=== PATIENT | male | born 1985 | race Caucasian/White ===

== ENCOUNTER 2022-10-06 10:25 | Outpatient (REF) | payer OTHER, SELFPAY ==
[2022-10-06 14:07] LABS: Hematocrit 46.7 % (42.0-52.0); Hemoglobin 16.3 g/dl (14.0-18.0); Mean Corpuscular HGB Conc 34.9 g/dl (31.0-36.0); Mean Corpuscular Hemoglobin 31.8 pg (27.0-33.0); Mean Platelet Volume 11.5 fL (9.4-12.4); Platelet Count 229 X10*3/uL (160-400); Red Blood Count 5.13 X10*6/uL (4.60-5.80); Red Cell Distribution Width 11.9 % (11.0-16.0); White Blood Count 5.9 X10*3/uL (4.8-10.8)
[2022-10-06 14:36] LABS: Alanine Aminotransferase 43 U/L (0-40); Albumin Level 4.5 g/dL (3.5-5.0); Alkaline Phosphatase 79 U/L (39-117); Anion Gap 12 (12-20); Aspartate Amino Transferase 35 U/L (5-37); Bilirubin Total 2.1 mg/dL (0.0-1.0); Blood Urea Nitrogen 11 mg/dL (9-16); Calcium 9.1 mg/dL (8.4-10.2); Carbon Dioxide 26 mmol/L (22-29); Chloride 108 mmol/L (96-108); Cholesterol 156 mg/dL; Estimated Glomerular Filt Rate > 60; Glucose Fasting 90 mg/dL (60-99); HDL Cholesterol 40 mg/dL; LDL Cholesterol Calculated 106 mg/dl; Potassium 4.1 mmol/L (3.3-5.1); Sodium 142 mmol/L (135-145); Total Protein 6.8 g/dL (6.5-8.0); Triglycerides 50 mg/dL
[2022-10-06 14:53] LABS: TSH reflex Free T4 0.59 uIU/mL (0.32-4.0)
== END 2022-10-06 10:26 | disposition home or self-care (01) ==
LOC: HO.WFDLDS 10:25
PROVIDERS: Visit Provider Nurse Practitioner Family
DX: Z00.00 Encounter for general adult medical examination without abnormal findings (principal); G12.20 Motor neuron disease, unspecified
CPT/HCPCS: 36415; 80053; 80061; 84443; 85027

== ENCOUNTER 2023-01-04 10:04 | Outpatient (AMB) | payer OTHER, SELFPAY ==
--- NOTE | 2023-01-04 10:06 | MHC.PC.OV ---
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 He is on Riluzole 50 mg twice daily. He has been on the medication since August 2022. No acute symptoms. He was followed by neurology at the [facility], [facility] He was referred to [facility] for during her last visit; he states he had an appointment with them a month ago and was referred to neurology and speech therapy at [facility]; he intends to schedule appointments to establish. He reports history of chronic elevated bilirubin. He also reports history of weak hands grasp due to weakness and stiffness of both thumbs. [facility] Medical History MND (motor neurone disease) Port-wine stain of skin Sinusitis Surgical History No pertinent past surgical history Family History Mother High cholesterol Father Hypertension Paternal Grandmother Cancer Maternal Grandfather Cardiovascular disease Social History Housing: House Alcohol intake: current Alcohol intake frequency: a few times a week Alcohol type: hard liquor Patient Tobacco Use Status: Never used Tobacco e-Cigarette/Vaping Use: Never Used Substance Use Type: Marijuana service: No Current occupational status: employed Current occupation: [employer] Cognitive needs: No Hearing needs: No Vision needs: No Questionnaire Thrive Questionnaire Date Thrive assessed: 10/06/22 I am a: Patient What is your living situation today?: I have a steady place to live Within the past 12 months, did the food you bought not last and you didn't have the money to get more?: Never true Within the past 12 months, did you worry whether your food would run out before you got money to buy more?: Never true SANJU-7 AMB Questionnaire SANJU-7 Date SANJU - 7 assessed: 10/06/22 Source: Developed by Drs. Joseluis Rodriguez, Frida Yun, Suleiman Guevara and colleagues, with an educational nitin from [employer]. Review of Systems Const Details: Const Denies chills, Denies fatigue, Denies fever(s), Denies headache(s) and Denies weakness ENT Denies dizziness and Denies headache(s) Card Denies chest pain, Denies lightheadedness, Denies dyspnea and Denies other (Palpitations) Resp Denies cough, Denies dyspnea, Denies wheezing and Denies other ( shortness of breath) GI Denies abdominal pain, Denies melena, Denies hematochezia, Denies change in bowel habits, Denies dyspepsia and Denies nausea Denies hematuria and Denies dysuria Musc Denies abnormal gait, Denies myalgias, Denies arthralgias, Denies numbness and Denies tingling Skin/Breast Denies rash, Denies unusual bruising and Denies wounds Neuro Denies abnormal gait, Denies dizziness, Denies headache(s), Denies memory loss, Denies numbness, Denies Sensory deficit (Neuro), Denies tingling and Denies weakness Psych Denies anxiety and Denies depression Endo Denies fatigue Aller/Immun Denies wheezing Physical exam (Primary Care) Vital Signs: Last Vital Signs Pulse 70 01/04/23 10:08 BP 112/62 01/04/23 10:08 Pulse Ox 98 01/04/23 10:08 BMI result Body Mass Index 28.3 Tobacco/Smoking Status: Tobacco use Status Tobacco use date assessed 10/06/22 01/04/23 10:07 Patient Tobacco Use Status Never used Tobacco 01/04/23 10:07 e-Cigarette/Vaping Use Never Used 01/04/23 10:07 Thrive Assessment: Date of Thrive Assessment Date Thrive assessed 10/06/22 01/04/23 10:07 Const Other: General: no acute distress and well developed Nutritional Appearance: well nourished Orientation/consciousness: patient oriented x3 HENNJ Head: Yes normocephalic and Yes atraumatic Eyes General: appearance normal, both eyes and all related structures Pupils: Equal, round and reactive pupils present EOM: EOMs intact bilaterally Resp Effort & Inspection: normal respiratory effort Auscultation: clear to auscultation bilaterally Cardio Rate: regular rate Rhythm: regular rhythm Heart sounds: S1 normal heart sound present, S2 normal heart sound present, no gallops, no murmurs and no rubs GI Palpation (GI): No Abdominal aortic bruit present, Soft to palpation, nontender, No hepatosplenomegaly present and No Rebound tenderness present Auscultation: normal bowel sounds General: Yes no CVA tenderness Back/Spine/Pelvis Back: no CVA tenderness Cervical Spine: cervical ROM normal and No Cervical spine tenderness Thoracic/Lumbar Spine: thoraco-lumbar ROM normal, No pain with thoraco-lumbar ROM, No thoracic spinal tenderness and No lumbar spinal tenderness Extrem General: Yes normal to inspection, No edema and No calf tenderness Skin General: warm and dry. Normal skin color. Normal skin turgor Lesions: no lesions Rashes: no rashes Trauma: no lacerations or abrasions Wounds: no wounds Nails: normal Neuro General: patient oriented x3, gait normal and CN's II-XI intact bilaterally Cranial nerves: Yes Equal, round and reactive pupils present Cognition (Neuro): normal cognition Gait exam (Neuro): Normal gait present Motor exam (neuro): 5/5 motor strength present throughout Weak hand grasp bilaterally Sensory Exam: No Sensory deficit (Neuro) Deep tendon reflexes (DTR's): Right patellar reflex intensity grade: 2+ and Left patellar reflex intensity grade: 2+ Psych Affect: normal affect Assessment and Plan Assessment & Plan (1) MND (motor neurone disease): Code(s): G12.20 - Motor neuron disease, unspecified Plan: No acute symptoms Follow-up with Neurology and speech therapy as planned Continue to take Riluzole as prescribed Advised to get liver panel blood work done today. Will review results and make changes to his care plan if warranted Encouraged to get liver panel blood work done few days before his next visit Recent lab results reviewed with the patient Follow-up in 3 months or return sooner with symptoms or concerns Verbalized understanding and agreed with treatment plan. Orders: Orders Liver Panel Today G12.20 - Motor neuron disease, unspecified Liver Panel 3 Months Z00.00 - Encounter for general adult medical examination without abnormal findings Coding Level of Care Code Est Pt Level 3 (02116) Diagnoses MND (motor neurone disease) G12.20 Time Spent (min) 25
[2023-01-04 10:08] VITALS: BP 112/62; PULSE 70; O2SAT 98; BMI 28.3
== END 2023-01-04 11:04 | disposition home or self-care (01) ==
PROVIDERS: PCP Nurse Practitioner Family; Visit Provider Nurse Practitioner Family
DX: G12.20 Motor neuron disease, unspecified (principal)
CPT/HCPCS: 99213

== ENCOUNTER 2023-01-04 11:11 | Outpatient (REF) | payer OTHER, SELFPAY ==
[2023-01-04 14:51] LABS: Alanine Aminotransferase 70 U/L (0-40); Albumin Level 4.3 g/dL (3.5-5.0); Alkaline Phosphatase 72 U/L (39-117); Aspartate Amino Transferase 58 U/L (5-37); Bilirubin Direct 0.5 mg/dL (0.0-0.5); Bilirubin Total 1.7 mg/dL (0.0-1.0); Total Protein 6.8 g/dL (6.5-8.0)
== END 2023-01-04 11:12 | disposition home or self-care (01) ==
LOC: HO.WFDLDS 11:11
PROVIDERS: Visit Provider Nurse Practitioner Family
DX: G12.20 Motor neuron disease, unspecified (principal)
CPT/HCPCS: 36415; 80076

== ENCOUNTER 2023-04-06 09:49 | Outpatient (AMB) | payer OTHER, SELFPAY ==
--- NOTE | 2023-04-06 09:55 | A.OFFPC_ITS ---
Vital Signs 04/06/23 09:56 Height 5 ft 10 in Weight 193 lb 8 oz BMI 27.8 BP 110/74 Blood Pressure Location Lt brachial Position Sitting Respiration 13 Pulse 76 Pulse Source Pulse Oximeter Temp 97.7 F Temp Source Temporal Artery Scan Pulse Oximetry (%) 98 Oxygen Delivery Method Room Air Intake Visit Reasons: 3 mos MND Intake Note: Patient states that he needs the last labs repeated to check on his liver functions due to medications he is taking. Patient plans on seizing work due to disability on April 27. 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 Accompanied by: Allergies No Known Allergies Allergy (Verified 04/06/23 10:38) Medication List - Last Reconciled 04/06/23 by Catherine Bauman, CATRINA edaravone (Radicava ORS) 105 mg PO QAM riluzole 50 mg PO Q12H 30 days sod phenylbutyrat-taurursodiol 3-1 gram (Relyvrio) 1 packet PO DAILY Tobacco use date assessed: 10/06/22 Dental Screening Dental Screen Date: 04/06/23 Did you have a dental visit in the last 12 months?: No Did you have a dental problem in the last 6 months where you did not have access to dental care?: No Was dental information given to patient?: Yes HPI HPI Comments History of Present Illness Details 37-year-old male, accompanied by his wif yuki, presents for MND follow up.He is on Riluzole 50 mg twice daily. He has been on the medication since August 2022. No acute symptoms. He is currently followed by neurology at the [facility], [facility] He states he was last seen 2 weeks ago. He states that he is still mostly independent. However, his right calf was found to be weaker due to right foot drop and was recommended a brace which he has not ordered. He was advised to follow-up every 3 months. He never followed with with neurology and speech therapy He notes that he has significantly cut down on his drinking. He notes that he drinks a glass of two of vodka weekly. He has history of chronically elevated bilirubin and liver enzymes. He notes that he had a negative liver ultrasound over a year ago. He had blood work done in December. His billirubin, AST, and ALT were elevated, 1.7, 58, and 70 respectively. [facility] Medical History Weakness of right lower extremity MND (motor neurone disease) Port-wine stain of skin Sinusitis Surgical History No pertinent past surgical history Family History Mother High cholesterol Father Hypertension Paternal Grandmother Cancer Maternal Grandfather Cardiovascular disease Social History Housing: House Alcohol intake: current Alcohol intake frequency: a few times a week Alcohol type: hard liquor Patient Tobacco Use Status: Never used Tobacco e-Cigarette/Vaping Use: Never Used Substance Use Type: Marijuana service: No Current occupational status: employed Current occupation: [employer] Cognitive needs: No Hearing needs: No Vision needs: No Questionnaire Thrive Questionnaire Date Thrive assessed: 10/06/22 SANJU-7 AMB Questionnaire SANJU-7 Date SANJU - 7 assessed: 10/06/22 Source: Developed by Drs. Joseluis Rodriguez, Frida Yun, Suleiman Guevara and colleagues, with an educational nitin from [employer]. Review of Systems Const Details: Const Denies chills, Denies fatigue, Denies fever(s), Denies headache(s) and Denies weakness ENT Denies dizziness and Denies headache(s) Card Denies chest pain, Denies lightheadedness, Denies dyspnea and Denies other (Palpitations) Resp Denies cough, Denies dyspnea, Denies wheezing and Denies other ( shortness of breath) GI Denies abdominal pain, Denies melena, Denies hematochezia, Denies change in bowel habits, Denies dyspepsia and Denies nausea Denies hematuria and Denies dysuria Musc Denies abnormal gait, Denies myalgias, Denies arthralgias, Denies numbness and Denies tingling Skin/Breast Denies rash, Denies unusual bruising and Denies wounds Neuro Denies abnormal gait, Denies dizziness, Denies headache(s), Denies memory loss, Denies numbness, Denies Sensory deficit (Neuro), Denies tingling and Denies weakness Psych Denies anxiety, Denies depression, Denies memory loss Endo Denies cold intolerance, Denies fatigue, Denies heat intolerance, Denies polydipsia and Denies polyuria Aller/Immun Denies wheezing Physical exam (Primary Care) Vital Signs: Last Vital Signs Temp 97.7 F 04/06/23 09:56 Pulse 76 04/06/23 09:56 Resp 13 04/06/23 09:56 BP 110/74 04/06/23 09:56 Pulse Ox 98 04/06/23 09:56 Oxygen Delivery Method Room Air 04/06/23 09:56 BMI result Body Mass Index 27.8 Tobacco/Smoking Status: Tobacco use Status Tobacco use date assessed 10/06/22 04/06/23 10:07 Patient Tobacco Use Status Never used Tobacco 04/06/23 10:07 e-Cigarette/Vaping Use Never Used 04/06/23 10:07 Thrive Assessment: Date of Thrive Assessment Date Thrive assessed 10/06/22 04/06/23 10:07 Const Other: General: no acute distress and well developed Nutritional Appearance: well nourished Orientation/consciousness: patient oriented x3 HENMT Head: Yes normocephalic and Yes atraumatic Eyes General: appearance normal, both eyes and all related structures Pupils: Equal, round and reactive pupils present EOM: EOMs intact bilaterally Resp Effort & Inspection: normal respiratory effort Auscultation: clear to auscultation bilaterally Cardio Rate: regular rate Rhythm: regular rhythm Heart sounds: S1 normal heart sound present, S2 normal heart sound present, no gallops, no murmurs and no rubs GI Palpation (GI): No Abdominal aortic bruit present, Soft to palpation, nontender, No hepatosplenomegaly present and No Rebound tenderness present Auscultation: normal bowel sounds General: Yes no CVA tenderness Back/Spine/Pelvis Back: no CVA tenderness Cervical Spine: cervical ROM normal and No Cervical spine tenderness Thoracic/Lumbar Spine: thoraco-lumbar ROM normal, No pain with thoraco-lumbar ROM, No thoracic spinal tenderness and No lumbar spinal tenderness Extrem General: Yes normal to inspection, No edema and No calf tenderness Skin General: warm and dry. Normal skin color. Normal skin turgor Neuro General: patient oriented x3, gait normal and no focal neuro deficit Cranial nerves: Yes Equal, round and reactive pupils present Cognition (Neuro): normal cognition Gait exam (Neuro): Normal gait present Motor exam (neuro): 5/5 motor strength BUE, 4/5 motor strength to BLE Sensory Exam: No Sensory deficit (Neuro) Psych Appearance: grossly normal Affect: normal affect Attitude: cooperative Thought process: Normal thought process present Assessment and Plan Assessment & Plan (1) MND (motor neurone disease): Code(s): G12.20 - Motor neuron disease, unspecified Plan: Normal physical and neuro exam Continue with current treatment regimen per neurology Continue follow-up with Neurology as planned Advised to schedule his next physical exam for next year Return sooner with symptoms or concerns Verbalized understanding and agreed with treatment plan. (2) Transaminitis: Code(s): R74.01 - Elevation of levels of liver transaminase levels Plan: History of chronically elevated AST and ALT Recent AST, and ALT were elevated 58 and 70 respectively Will repeat AST and ALT level. Advised to get fasting blood work done. Will review results and make changes to his care plan as needed. Would order liver ultrasound if elevated He has cut down his drinking to 1-2 glasses of vodka weekly Verbalized understanding and agreed with treatment plan. (3) Elevated bilirubin: Code(s): R17 - Unspecified jaundice Plan: History chronically elevated bilirubin level Recent bilirubin level is elevated elevated, 1.7 Will check bilirubin level. Will review results and make changes to his care plan if warranted. Verbalized understanding and agreed with treatment plan. Orders: Orders Bilirubin Total Today R17 - Unspecified jaundice Coding Level of Care Code Est Pt Level 3 (07660) Diagnoses MND (motor neurone disease) G12.20 Transaminitis R74.01 Elevated bilirubin R17
[2023-04-06 09:56] VITALS: BP 110/74; PULSE 76; RESP 13; TEMP 36.5; O2SAT 98; BMI 27.8
== END 2023-04-06 10:51 | disposition home or self-care (01) ==
PROVIDERS: PCP Nurse Practitioner Family; Visit Provider Nurse Practitioner Family
DX: G12.20 Motor neuron disease, unspecified (principal); R74.01 Elevation of levels of liver transaminase levels; R17 Unspecified jaundice
CPT/HCPCS: 99213

== ENCOUNTER 2023-04-06 10:54 | Outpatient (REF) | payer OTHER, SELFPAY ==
[2023-04-06 14:57] LABS: Bilirubin Total 1.3 mg/dL (0.0-1.0)
[2023-04-06 15:01] LABS: Alanine Aminotransferase 62 U/L (0-40); Albumin Level 4.4 g/dL (3.5-5.0); Alkaline Phosphatase 85 U/L (39-117); Aspartate Amino Transferase 46 U/L (5-37); Bilirubin Direct 0.4 mg/dL (0.0-0.5); Bilirubin Total 1.3 mg/dL (0.0-1.0); Total Protein 7.1 g/dL (6.5-8.0)
== END 2023-04-06 10:55 | disposition home or self-care (01) ==
LOC: HO.WFDLDS 10:54
PROVIDERS: Visit Provider Nurse Practitioner Family
DX: Z00.00 Encounter for general adult medical examination without abnormal findings (principal); R17 Unspecified jaundice
CPT/HCPCS: 36415; 80076; 82247

== ENCOUNTER 2023-04-15 08:26 | Outpatient (REF) | payer OTHER, SELFPAY ==
--- NOTE | ~2023-04-15 | US_ITS ---
EXAMINATION: US ABDOMEN LIMITED CLINICAL INFORMATION: Elevation of liver transaminase levels. COMPARISON: None available. TECHNIQUE: Real-time imaging of the right upper quadrant abdominal viscera. FINDINGS: PANCREAS: Normal. LIVER: The liver is normal in size. The liver contour is normal. Slightly increased hepatic echogenicity suggesting hepatic steatosis. No focal hepatic lesion. There is no intrahepatic biliary duct dilatation seen. GALLBLADDER: Normal. The gallbladder is physiologically distended without evidence of stones, sludge, polyps, wall thickening or pericholecystic fluid. COMMON BILE DUCT: Normal in caliber measuring 0.23 cm in diameter. RIGHT KIDNEY: Normal. No hydronephrosis. No renal calculi or focal parenchymal lesions. The kidney measures 11.5 cm in maximum dimension. FREE FLUID: None. US/US abdomen limited IMPRESSION: Slightly increased hepatic echogenicity suggesting hepatic steatosis.
== END 2023-04-15 08:27 | disposition home or self-care (01) ==
LOC: HO.HMGCX 08:26
PROVIDERS: PCP Nurse Practitioner Family; Visit Provider Nurse Practitioner Family
DX: R74.01 Elevation of levels of liver transaminase levels (principal)
CPT/HCPCS: 76705

== ENCOUNTER 2023-10-11 10:32 | Outpatient (AMB) | payer OTHER, SELFPAY ==
[2023-10-11 10:38] VITALS: BP 112/60; PULSE 79; RESP 13; TEMP 36.6; O2SAT 96; BMI 27.0
--- NOTE | 2023-10-11 10:38 | A.OFFPC_ITS ---
Vital Signs 10/11/23 10:38 Height 5 ft 10 in Weight 188 lb BMI 27.0 BP 112/60 Blood Pressure Location Lt brachial Position Sitting Respiration 13 Pulse 79 Pulse Source Pulse Oximeter Temp 97.8 F Temp Source Temporal Artery Scan Pulse Oximetry (%) 96 Oxygen Delivery Method Room Air Intake Visit Reasons: CPE Jet Engine Mechanic Required: No Accompanied by: Spouse Allergies No Known Allergies Allergy (Verified 10/11/23 11:24) Medication List - Last Reconciled 10/11/23 by Catherine Bauman CNP riluzole 50 mg PO Q12H 30 days Tobacco use date assessed: 10/11/23 Dental Screening Dental Screen Date: 10/11/23 Did you have a dental visit in the last 12 months?: No Did you have a dental problem in the last 6 months where you did not have access to dental care?: No Was dental information given to patient?: Yes HPI HPI Comments History of Present Illness Details 38-year-old male, accompanied by his wif yuki, presents for an extended physical exam He has PMH significant for MNH, elevated bilirubin, and elevated AST and ALT He is on Riluzole 50 mg twice daily. He is followed by neurology at the [facility]. His last visit was 2-3 weeks ago (telehealth) He is also followed by [facility] sleep medicine who recently referred with to [facility] pulmonology for a PFT He offers no complaints and denies acute symptoms at this time He has not been to a dentist in the past year He is not up-to-date on the flu vaccine; requests the flu vaccine Non smoker, non drinker, smokes marijuana daily PFSH Medical History Weakness of right lower extremity MND (motor neurone disease) Port-wine stain of skin Sinusitis Surgical History No pertinent past surgical history Family History Mother High cholesterol Father Hypertension Paternal Grandmother Cancer Maternal Grandfather Cardiovascular disease Social History Household Members: Spouse Housing: House Are you a primary health care administrator to a significant other at home: No Do you presently have visiting nurse or other home services: No Alcohol intake: current Alcohol intake frequency: a few times a week Alcohol type: hard liquor Patient Tobacco Use Status: Never used Tobacco e-Cigarette/Vaping Use: Never Used Substance Use Type: Marijuana service: No Current occupational status: retired and disabled Cognitive needs: No Hearing needs: No Vision needs: No Questionnaire PHQ-9 Over the last 2 weeks, how often have you been bothered by any of the following problems? 1. Little interest or pleasure in doing things: not at all 2. Feeling down, depressed, or hopeless: several days 3. Trouble falling or staying asleep, or sleeping too much: not at all 4. Feeling tired or having little energy: more than half the days 5. Poor appetite or overeating: not at all 6. Feeling bad about yourself - or that you are a failure or have let yourself or your family down: not at all 7. Trouble concentrating on things, such as reading the newspaper or watching television: not at all 8. Moving or speaking so slowly that other people could have noticed. Or the opposite - being so fidgety or restless that you have been moving around a lot more than usual: several days 9. Thoughts that you would be better off or of hurting yourself in some way: not at all Total score: 4 Depression Screening Interpretation: Negative Depression Screening Done: Yes 29965 - PHQ-9 Billing: Yes Source: Developed by Drs. Joseluis Rodriguez, Frida Yun, Suleiman Guevara and colleagues, with an educational nitin from [employer]. Thrive Questionnaire Date Thrive assessed: 10/11/23 I am a: Patient What is your living situation today?: I have a steady place to live Within the past 12 months, did the food you bought not last and you didn't have the money to get more?: Never true Within the past 12 months, did you worry whether your food would run out before you got money to buy more?: Never true Do you have trouble paying for medicines?: No Do you have trouble getting transportation to medical appointments?: No Do you have trouble paying your heating and electricity bill?: No Do you have trouble taking care of your child, family member or friend?: No Do you have trouble with day-to-day activities such as bathing, preparing meals, shopping, managing finances, etc.?: Yes Are you currently unemployed and looking for a job?: No Are you interested in more education?: No Please select the resources that you would like help with: None Currently or been in a relationship where the following occur: no concerns reported THRIVE Score: 0 AUDIT C Alcohol Use Questionnaire (AUDIT-C) 1. How often do you have a drink containing alcohol?: Never 3. How often do you have six or more drinks on one occasion?: Never Total Score: 0 SANJU-7 AMB Questionnaire SANJU-7 Date SANJU - 7 assessed: 10/11/23 Feeling nervous, anxious, or on edge: 0 = Not at all Not being able to stop or control worryin = Not at all Worrying too much about different things: 0 = Not at all Trouble relaxin = Not at all Being so restless that it is hard to sit still: 1 = Several days Becoming easily annoyed or irritable: 1 = Several days Feeling afraid as if something awful might happen: 0 = Not at all Total SANJU-7 score (0-4 normal; 5-9 mild; 10-14 moderate; 15-21 severe): 2 Source: Developed by Drs. Joseluis Rodriguez, Frida Yun, Suleiman Guevara and colleagues, with an educational nitin from [employer]. SANJU-7 Assessment Billing SANJU-7 Assessment Tool: SANJU-7 Assessment 31552 Review of Systems Const Details: Denies chills, Denies fatigue, Denies fever(s), Denies headache(s) and Denies weakness HEENT Denies change in vision, Denies dizziness, Denies headache(s), Denies hearing loss, Denies nasal congestion, Denies sinus pain, Denies sinus pressure and Denies sore throat Card Denies chest pain, Denies lightheadedness, Denies dyspnea and Denies other (palpitations) Resp Denies cough, Denies dyspnea and Denies wheezing GI Denies abdominal pain, Denies melena, Denies hematochezia, Denies change in bowel habits, Denies dyspepsia and Denies nausea Denies hematuria and Denies dysuria Musc Reports abnormal gait, Denies myalgias, Denies arthralgias, Denies numbness and Denies tingling Skin/Breast Denies rash, Denies unusual bruising and Denies wounds Neuro Reports abnormal gait, Denies dizziness, Denies headache(s), Denies memory loss, Denies numbness, Denies Sensory deficit (Neuro), Denies tingling and Denies weakness Psych Denies anxiety, Denies depression and Denies memory loss Endo Denies cold intolerance, Denies fatigue, Denies heat intolerance, Denies polydipsia and Denies polyuria Jameson/Lymph Denies easy bleeding and Denies easy bruising Aller/Immun Denies wheezing Physical exam (Primary Care) Vital Signs: Last Vital Signs Temp 97.8 F 10/11/23 10:38 Pulse 79 10/11/23 10:38 Resp 13 10/11/23 10:38 BP 112/60 10/11/23 10:38 Pulse Ox 96 10/11/23 10:38 Oxygen Delivery Method Room Air 10/11/23 10:38 BMI result Body Mass Index 27.0 Tobacco/Smoking Status: Tobacco use Status Tobacco use date assessed 10/11/23 10/11/23 10:50 Patient Tobacco Use Status Never used Tobacco 10/11/23 10:50 e-Cigarette/Vaping Use Never Used 10/11/23 10:50 PHQ-9: PHQ-9 Score PHQ-9: Total score 4 10/11/23 11:18 Depression Screening Interpretation: Negative Thrive Assessment: Date of Thrive Assessment Date Thrive assessed 10/11/23 10/11/23 10:50 Currently or been in a relationship where the following occur: no concerns reported Const Other: General: no acute distress, well developed, alert and awake Nutritional Appearance: well nourished Orientation/consciousness: patient oriented x3 HENMT Head: Yes normocephalic and Yes atraumatic Ears: hearing grossly normal bilaterally and TM's normal bilaterally General nose exam: Normal external nose present and Normal nares present Mouth: Normal oral and palatal mucosa present and moist mucous membranes Teeth and gingiva: dentition normal Throat: Yes oropharynx normal Eyes Pupils: Equal, round and reactive pupils present and Pupil accommodation reflex normal EOM: EOMs intact bilaterally Neck Neck: Yes normal visual inspection, Yes no lymphadenopathy and Yes trachea midline Thyroid: Thyroid normal Carotids: no bruits Lymphatic: no lymphadenopathy noted Chest Chest palpation & inspection: normal inspection of the chest Resp Effort & Inspection: normal respiratory effort Auscultation: clear to auscultation bilaterally Cardio Rate: regular rate Rhythm: regular rhythm Heart sounds: S1 normal heart sound present, S2 normal heart sound present, no gallops, no murmurs and no rubs Bruits: no abdominal aortic bruits and no carotid bruits GI Palpation (GI): No Abdominal aortic bruit present, Soft to palpation, nontender, No hepatosplenomegaly present and No Rebound tenderness present Auscultation: normal bowel sounds General: Yes no CVA tenderness Back/Spine/Pelvis Back: no CVA tenderness Cervical Spine: cervical ROM normal and No Cervical spine tenderness Thoracic/Lumbar Spine: thoraco-lumbar ROM normal, No pain with thoraco-lumbar ROM, No thoracic spinal tenderness and No lumbar spinal tenderness Skin General: warm and dry. Normal skin color. Normal skin turgor. Port-wine stain to left arm and upper back Lesions: no lesions Rashes: no rashes Trauma: no lacerations or abrasions Wounds: no wounds Nails: normal Neuro General: patient oriented x3, gait normal and CN's II-XI intact bilaterally Cranial nerves: Yes Equal, round and reactive pupils present Cognition (Neuro): normal cognition Gait exam (Neuro): Normal gait present Motor exam (neuro): 3/5 motor strength present to BUE, 4/5 motor strength present to BLE Sensory Exam: No Sensory deficit (Neuro) Deep tendon reflexes (DTR's): Right patellar reflex intensity grade: 2+ and Left patellar reflex intensity grade: 2+ Extrem General: Yes normal to inspection, No edema and No calf tenderness Psych Appearance: grossly normal Affect: normal affect Attitude: cooperative Thought process: Normal thought process present Office Procedures Flu Questionnaire Does the patient have a severe egg allergy?: No Does the patient have severe life threatening allergies?: No Does the patient have a fever or illness today?: No Has the patient ever had Guillain-Hancock Syndrome?: No Has the patient ever had any past reaction to a flu shot?: No Immunizations flu vacc [id number] 6mos up(PF) 60 mcg(15 mcgx4)/0.5 mL IM syringe Performing Provider: Catherine Bauman CNP Performing Location: [facility] Documented (not given) by: Lisset Turcios RN on 10/11/23 11:50 Dose Route Admin Location Dispensed Lot Number Expiration Date NDC 911 Telecommunicator 0.5 mL IM mL VIS Given Date VIS Provided VIS Publication Date Single Vaccine 21 Eligibility Eligibility Date Funding Source Assessment and Plan Assessment & Plan (1) Abnormal physical evaluation: Code(s): Z00.01 - Encounter for general adult medical examination with abnormal findings Plan: Significant weakness to bilateral upper and lower extremities, upper extremities weaker than lower extremities He uses a cane for ambulation Safety, including use of cane for ambulation instructed Advised to continue current treatment regimen Continue follow-up with Neurology, sleep Medicine, and pulmonology as planned Encouraged to establish with a dentist for routine dental care Advised to get fasting labs done and follow-up for telehealth visit for lab reviews in 2-3 weeks Return with symptoms or concerns Verbalized understanding and agreed with the plan Flu vaccine administered in the office by the nurse (2) Laboratory tests ordered as part of a complete physical exam (CPE): Code(s): Z00.00 - Encounter for general adult medical examination without abnormal findings Plan: Fasting labs ordered in preparation of a complete physical exam. Advised to fast for at least 10 hours before getting labs drawn. May drink water Verbalized understanding and agreed with treatment plan. Orders: Orders Complete Blood Count Auto Diff Today Z00.00 - Encounter for general adult medical examination without abnormal findings Lipid Panel Today Z00.00 - Encounter for general adult medical examination without abnormal findings TSH reflex Free T4 Today Z00.00 - Encounter for general adult medical examination without abnormal findings UA CC w/rflx Micro + Cult Today Z00.00 - Encounter for general adult medical examination without abnormal findings Comprehensive [facility]. Panel Fast Today Z00.00 - Encounter for general adult medical examination without abnormal findings Coding Level of Care Code Est Pt Prev Care 18-39y(48748) Diagnoses Abnormal physical evaluation Z00.01 Laboratory tests ordered as part of a complete physical exam (CPE) Z00.00 Additional Codes SANJU-7 Assessment Billing - SANJU-7 Assessment Tool: SANJU-7 Assessment 70187 ([id number])
== END 2023-10-11 11:50 | disposition home or self-care (01) ==
PROVIDERS: PCP Nurse Practitioner Family; Visit Provider Nurse Practitioner Family
DX: Z00.00 Encounter for general adult medical examination without abnormal findings (principal)
CPT/HCPCS: 99395

== ENCOUNTER 2023-10-11 11:52 | Outpatient (REF) | payer OTHER, SELFPAY ==
[2023-10-11 14:11] LABS: MANUAL DIFF FLAG NO
[2023-10-11 14:14] LABS: Appearance Urine Turbid; Color Urine Yellow; Glucose Urine UA Negative (Negative); Leukocyte Esterase Urine Negative (Negative); Nitrite Urine Negative (Negative); Specific Gravity - Urine 1.025 (1.005-1.025); Urine Blood Negative (Negative); Urine Ketones Negative (Negative); Urine Protein Negative (Neg-Trace)
[2023-10-11 14:16] LABS: Basophils Percent Auto 0.3 % (0-2); Eosinophils Absolute Auto 0.1 X10*3/uL (0.0-0.4); Eosinophils Percent Auto 1.5 % (0-4); Hematocrit 47.2 % (42.0-52.0); Hemoglobin 16.6 g/dl (14.0-18.0); Imm Gran Abs Auto 0.03 X10*3/uL (0.00-0.03); Imm Gran Pct Auto 0.4 % (0.0-0.4); Lymphocytes Absolute Auto 1.5 X10*3/uL (1.2-4.9); Lymphocytes Percent Auto 20.8 % (20-40); Mean Corpuscular HGB Conc 35.2 g/dl (31.0-36.0); Mean Corpuscular Hemoglobin 32.3 pg (27.0-33.0); Mean Corpuscular Volume 91.8 fL (80.0-98.0); Mean Platelet Volume 11.4 fL (9.4-12.4); Monocytes Absolute Auto 0.7 X10*3/uL (0.1-1.2); Monocytes Percent Auto 9.1 % (2-11); Neutrophils Absolute Auto 4.8 x10*3/uL (2.0-8.3); Neutrophils Percent Auto 67.9 % (45-73); Platelet Count 244 X10*3/uL (160-400); Red Blood Count 5.14 X10*6/uL (4.60-5.80); White Blood Count 7.1 X10*3/uL (4.8-10.8)
[2023-10-11 15:06] LABS: Alanine Aminotransferase 48 U/L (0-40); Albumin Level 4.9 g/dL (3.5-5.0); Alkaline Phosphatase 86 U/L (39-117); Anion Gap 12 (12-20); Aspartate Amino Transferase 41 U/L (5-37); Bilirubin Total 1.8 mg/dL (0.0-1.0); Blood Urea Nitrogen 13 mg/dL (9-16); Carbon Dioxide 27 mmol/L (22-29); Chloride 105 mmol/L (96-108); Cholesterol 163 mg/dL (<200); Estimated Glomerular Filt Rate > 60; Glucose Fasting 86 mg/dL (60-99); HDL Cholesterol 32 mg/dL (>40); LDL Cholesterol Calculated 110 mg/dL (<100); Sodium 140 mmol/L (135-145); Total Protein 7.8 g/dL (6.5-8.0); Triglycerides 106 mg/dL (<150)
[2023-10-11 15:10] LABS: TSH reflex Free T4 0.78 uIU/mL (0.32-4.0)
== END 2023-10-11 11:53 | disposition home or self-care (01) ==
LOC: HO.WFDLDS 11:52
PROVIDERS: Visit Provider Nurse Practitioner Family
DX: Z00.00 Encounter for general adult medical examination without abnormal findings (principal)
CPT/HCPCS: 36415; 80053; 80061; 81003; 84443; 85025

== ENCOUNTER 2023-11-01 15:22 | Outpatient (AMB) | payer OTHER, SELFPAY ==
--- NOTE | 2023-11-01 15:21 | MHC.PC.OV ---
Intake Visit Reasons: Lab review Intake Note: pt is here for lab review Allergies No Known Allergies Allergy (Verified 11/01/23 15:23) Tobacco use date assessed: 10/11/23 Dental Screening Dental Screen Date: 10/11/23 HPI HPI Comments History of Present Illness Details 38-year-old male presents for telemedicine visit for review of recent lab work He admits to taking his medications as prescribed without adverse reactions He offers no complaints and denies acute symptoms at this time [facility] Medical History Weakness of right lower extremity MND (motor neurone disease) Port-wine stain of skin Sinusitis Surgical History No pertinent past surgical history Family History Mother High cholesterol Father Hypertension Paternal Grandmother Cancer Maternal Grandfather Cardiovascular disease Social History Household Members: Spouse Both parents involved: No Caregiver staying overnight: No Housing: House Are you a primary post acute care nurse practitioner to a significant other at home: No Do you presently have visiting nurse or other home services: No 75 years or older and lives alone: No Alcohol intake: current Alcohol intake frequency: a few times a week Alcohol type: hard liquor Patient Tobacco Use Status: Never used Tobacco e-Cigarette/Vaping Use: Never Used Substance Use Type: Marijuana service: No Current occupational status: retired and disabled Cognitive needs: No Hearing needs: No Vision needs: No Questionnaire Thrive Questionnaire Date Thrive assessed: 10/11/23 SANJU-7 AMB Questionnaire SANJU-7 Date SANJU - 7 assessed: 10/11/23 Source: Developed by Drs. Joseluis Rodriguez, Frida Yun, Suleiman Guevara and colleagues, with an educational nitin from [employer]. Review of Systems Const Details: Const Denies chills, Denies fatigue, Denies fever(s), Denies headache(s) and Denies weakness ENT Denies dizziness and Denies headache(s) Card Denies chest pain, Denies lightheadedness, Denies dyspnea and Denies other (Palpitations) Resp Denies cough, Denies dyspnea, Denies wheezing and Denies other ( shortness of breath) GI Denies abdominal pain, Denies melena, Denies hematochezia, Denies change in bowel habits, Denies dyspepsia and Denies nausea Denies hematuria and Denies dysuria Musc Denies abnormal gait, Denies myalgias, Denies arthralgias, Denies numbness and Denies tingling Skin/Breast Denies rash, Denies unusual bruising and Denies wounds Neuro Denies abnormal gait, Denies dizziness, Denies headache(s), Denies memory loss, Denies numbness, Denies Sensory deficit (Neuro), Denies tingling and Denies weakness Psych Denies anxiety, Denies depression, Denies memory loss Endo Denies cold intolerance, Denies fatigue, Denies heat intolerance, Denies polydipsia and Denies polyuria Aller/Immun Denies wheezing Physical exam (Primary Care) Tobacco/Smoking Status: Tobacco use Status Tobacco use date assessed 10/11/23 11/01/23 15:22 Patient Tobacco Use Status Never used Tobacco 11/01/23 15:22 e-Cigarette/Vaping Use Never Used 11/01/23 15:22 Thrive Assessment: Date of Thrive Assessment Date Thrive assessed 10/11/23 11/01/23 15:22 Const Other: Telemedicine visit. No physical exam Telehealth Telehealth Telehealth Platform: Telephone Location of provider rendering services: practice address Location of patient: address on file Patient Identification confirmed using: Name, : Yes Telehealth method: voice only Patient verbally consented to treatment: Yes Patient verbally consented to billing insurance company: Yes Patient informed of any privacy concerns related to visit: Yes Assessment and Plan Assessment & Plan (1) Elevated bilirubin: Code(s): R17 - Unspecified jaundice Plan: Recent bilirubin level is elevated, 1.8. History of elevated bilirubin No acute symptoms ALT and AST slightly elevated, 48 and 41 respectively; history of hepatic steatosis Gilbert syndrome is likely Will monitor bilirubin level periodically Advised to follow-up next year for an extended physical exam or return sooner with symptoms or concerns Verbalized understanding and agreed with the plan (2) Hepatic steatosis: Code(s): K76.0 - Fatty (change of) liver, not elsewhere classified Plan: ALT and AST slightly elevated, 48 and 41 respectively; abdominal ultrasound on 04/15/2023 revealed hepatic steatosis No acute symptoms Denies alcohol consumption Healthy diet and routine exercise encouraged Will monitor liver panel routinely Follow-up with symptoms or concerns Verbalized understanding and agreed with treatment plan (3) Low HDL (under 40): Code(s): E78.6 - Lipoprotein deficiency Plan: Recent HDL level is slightly low, 32 Advised to limit foods high in saturated fat and avoid foods high trans fat Routine exercise encouraged Will monitor liver panel periodically Verbalized understanding and agreed with treatment plan Coding Level of Care Code Tele Est Pt Level 3 (14559) Diagnoses Elevated bilirubin R17 Hepatic steatosis K76.0 Low HDL (under 40) E78.6 Time Spent (min) 15
--- OUTSIDE RECORDS SUMMARY | 2023-11-01 15:24 | XMS_ITS | Continuity of Care Document ---
Author Organization [facility] Address [address] [address]- Care Team Providers Care Automotive Parts Counter Associate Name Role Phone Catherine Bauman NP Primary Care Physician [phone] Encounter [facility] Date(s): 12/17/22 - 01/16/23 [facility] [address] [place] [address]- Attending Physician: Celi Nick Admitting Physician: Celi Nick Referring Physician: AdmtrCeli Allergies, Adverse Reactions, Alerts No Known Allergies Medications riluzole 50 mg oral tablet 60 each, 0 Refill(s), TAKE 1 TABLET BY MOUTH EVERY 12 HOURS, 0 Refills, 12/17/22 13:39:00 EDT, Partial fill upon patient request if the prescription is for a schedule II opioid drug. Start Date: 12/17/22 Status: Ordered Patient Care team information Care Team Personnel Name: Catherine Bauman NP Position: Reference Physician Member Role: PCP Address: Address: [address] [place] [address]- Care Team Related Persons Name: GIOVANNA IRWIN Address: home [address] [place] [address]
--- OUTSIDE RECORDS SUMMARY | 2023-11-01 15:24 | XMS_ITS | Continuity of Care Document ---
Author Organization [facility] Address [address] [place] [address]- Care Team Providers Care Manager Restaurant Name Role Phone Catherine Bauman NP Primary Care Physician [id number] Date(s): 06/10/23 - 08/20/23 [facility] [address] [place] [address]- Attending Physician: Melo Remy MD Admitting Physician: Melo Remy MD Referring Physician: Catherine Bauman NP Allergies, Adverse Reactions, Alerts No Known Allergies [...] Reference Physician Member Role: PCP Address: Address: [address] [place] [address]- Care Team Related Persons Name: GIOVANNA IRWIN Address: home [address] [place] [address]
--- OUTSIDE RECORDS SUMMARY | 2023-11-01 15:24 | XMS_ITS | Continuity of Care Document ---
Author Organization [facility] Address [address] [place] [address]- Care Team Providers Care Land Economist Name Role Phone Catherine Bauman NP Primary Care Physician [id number] Date(s): 07/21/23 - 08/20/23 [facility] [address] [place] [address]- Attending Physician: Celi Nick Admitting Physician: AdmCeli duke Referring Physician: Admtr ArBasilio Allergies, Adverse Reactions, Alerts No Known Allergies [...] Reference Physician Member Role: PCP Address: Address: [address] [place] [address]- Care Team Related Persons Name: GIOVANNA IRWIN Address: home [address] [place] [address]
--- OUTSIDE RECORDS SUMMARY | 2023-11-01 15:24 | XMS_ITS | Continuity of Care Document ---
Author Organization [facility] Address [address] [place] [address]- Care Team Providers Care Check Writing Machine Operator Name Role Phone Catherine Bauman NP Primary Care Physician [phone] Encounter [facility] Date(s): 12/17/22 - 12/24/22 [facility] [address] [place] [address]- Attending Physician: Tristen Ovalle MD Referring Physician: Catherine Bauman NP Allergies, Adverse Reactions, Alerts No Known Allergies Medications riluzole 50 mg oral tablet 60 each, 0 Refill(s), TAKE 1 TABLET BY MOUTH EVERY 12 HOURS, 0 Refills, 12/17/22 13:39:00 EDT, Partial fill upon patient request if the prescription is for a schedule II opioid drug. Start Date: 12/17/22 Status: Ordered Vital Signs Most recent to oldest [Reference Range]: 1 2 Weight 88.5 kg (12/17/22 1:28 PM) 88.5 kg (12/17/22 8:08 AM) Oxygen Saturation [94-100 %] 96 % (12/17/22 8:08 AM) Pulse Rate [55-90 bpm] 75 bpm (12/17/22 8:08 AM) Blood Pressure [90-138/55-84 mm Hg] 122/ 94mm Hg (12/17/22 8:08 AM) Mode of Delivery (Oxygen) Room air (12/17/22 8:08 AM) Blood pressure sites Arm, left (12/17/22 8:08 AM) Patient Care team information Care Team Personnel Name: Catherine Bauman NP Position: Reference Physician Member Role: PCP Address: Address: [address] [place] [address]- Care Team Related Persons Name: GIOVANNA IRWIN Address: home [address] [place] [address]
--- OUTSIDE RECORDS SUMMARY | 2023-11-01 15:24 | XMS_ITS | Continuity of Care Document ---
Author Organization [facility] Address [address] [place] [address]- Care Team Providers Care Gse Mechanic Name Role Phone Catherine Bauman NP Primary Care Physician [phone] Encounter [facility] Date(s): 01/21/23 - 02/20/23 [facility] [address] [place] [address]- Attending Physician: Celi Nick Admitting Physician: AdmCeli duke Referring Physician: Admtr, Ar8 Allergies, Adverse Reactions, Alerts No Known Allergies [...] Reference Physician Member Role: PCP Address: Address: [address] [place] [address]- Care Team Related Persons Name: GIOVANNA IRWIN Address: home [address] [place] [address]
--- OUTSIDE RECORDS SUMMARY | 2023-11-01 15:24 | XMS_ITS | Continuity of Care Document ---
Author Organization [facility] Address [address] [place] [address]- Care Team Providers Care Wood Calker Name Role Phone Catherine Bauman NP Primary Care Physician [phone] [id number] Date[facility]): [facility]18[facility] - 02/20/23 [facility] [address] [place] [address]- Attending Physician: Lissette Forde MD Admitting Physician: Lissette Forde MD Referring Physician: Tristen Ovalle MD Allergies, Adverse Reactions, Alerts No Known Allergies [...] Reference Physician Member Role: PCP Address: Address: [address] [place] [address]- Care Team Related Persons Name: GIOVANNA IRWIN Address: home [address] [place] [address]
--- OUTSIDE RECORDS SUMMARY | 2023-11-01 15:24 | XMS_ITS | Continuity of Care Document ---
Author Organization [facility] Address [address] [place] [id number]- Care Team Providers Care Manager Revenue Name Role Phone Catherine Bauman NP Primary Care Physician [place] [facility] [place] 09/22/23 - 10/22/23 [facility] [address] [id number] Attending Physician: Celi Nick Admitting Physician: AdmtrCeli Referring Physician: Admtr, Ar8 Allergies, Adverse Reactions, [...] Reference Physician Member Role: PCP Address: Address: [address] [place] [id number]- Care Team Related Persons Name: GIOVANNA IWRIN Address: home [address] [place] [id number]
== END 2023-11-01 17:47 | disposition home or self-care (01) ==
LOC: HO.HMGFM 15:22
PROVIDERS: PCP Nurse Practitioner Family; Visit Provider Nurse Practitioner Family
DX: R17 Unspecified jaundice (principal); K76.0 Fatty (change of) liver, not elsewhere classified; E78.6 Lipoprotein deficiency
CPT/HCPCS: 99213